=== PATIENT | female | born 1950 | race Caucasian/White ===

== ENCOUNTER 2017-12-08 11:08 | Day surgery (SDC) | payer MEDICARE ==
[2017-12-08] MEDS ORDERED: MIDAZOLAM 2 MG/2 ML SOL ONE (11:31)
[2017-12-08] MEDS: PHENYLEPHRINE HCL 10% OPHTHAL SOL ONE ×3 (12:01→12:08)
[2017-12-08] MEDS: TROPICAMIDE 1% OPHTH SOL ONE ×3 (12:01→12:08)
[2017-12-08] MEDS: CYCLOPENTOLATE 1% SOL ONE ×3 (12:01→12:08)
[2017-12-08] MEDS ORDERED: KETOROLAC/HOME 0.5% SOL OP ONE ×3 (12:02→12:09)
[2017-12-08] MEDS ORDERED: MOXIFLOXACIN-HOME SOL OP ONE ×2 (12:02→12:05)
[2017-12-08] MEDS: PROPARACAINE HCL 0.5% OPHTHALMIC SOL ONE ×2 (12:09→13:09)
[2017-12-08] MEDS ORDERED: BSS W/ 0.5 MG P.F. EPI 1 BOTTLE ONE (13:03)
[2017-12-08] MEDS ORDERED: LIDOCAINE HCL 2% MPF 10 ML SOL ONE (13:03)
[2017-12-08] MEDS ORDERED: POVIDONE IODINE 5% SOL ONE (13:03)
[2017-12-08 13:54] VITALS: BP 178/76; PULSE 74; RESP 20; TEMP 97.7; O2SAT 98
[2017-12-08] MEDS: ACETAZOLAMIDE 250 MG PO ONE ×2 (13:55→13:57)
== END 2017-12-08 14:10 | disposition home or self-care (01) | DRG 125 ==
LOC: SURG 11:08
PROVIDERS: ATTEND Ophthalmology
DX: H25.89 Other age-related cataract (principal)
CPT/HCPCS: J2250; A9270-GY

== ENCOUNTER 2018-01-05 11:27 | Day surgery (SDC) | payer MEDICARE ==
[2018-01-05] MEDS: MOXIFLOXACIN-HOME SOL LEFTEYE ONE ×2 (11:44→11:47)
[2018-01-05] MEDS: TROPICAMIDE 1% OPHTH SOL ONE ×3 (11:44→11:50)
[2018-01-05] MEDS: PHENYLEPHRINE HCL 10% OPHTHAL SOL ONE ×3 (11:44→11:51)
[2018-01-05] MEDS: KETOROLAC/HOME 0.5% SOL LEFTEYE ONE ×3 (11:44→11:50)
[2018-01-05] MEDS: CYCLOPENTOLATE 1% SOL ONE ×3 (11:44→11:50)
[2018-01-05] MEDS: PROPARACAINE HCL 0.5% OPHTHALMIC SOL ONE ×2 (11:51→12:36)
[2018-01-05] MEDS ORDERED: MIDAZOLAM 2 MG/2 ML SOL ONE (12:19)
[2018-01-05] MEDS ORDERED: LIDOCAINE HCL 2% MPF 10 ML SOL ONE (12:31)
[2018-01-05] MEDS ORDERED: POVIDONE IODINE 5% SOL ONE (12:32)
[2018-01-05] MEDS ORDERED: BSS W/ 0.5 MG P.F. EPI 1 BOTTLE ONE (12:32)
[2018-01-05] MEDS ORDERED: ACETAZOLAMIDE 250 MG PO ONE (12:37)
[2018-01-05 13:05] VITALS: BP 184/76; PULSE 78; RESP 18; TEMP 97.6; O2SAT 94
== END 2018-01-05 13:17 | disposition home or self-care (01) | DRG 125 ==
LOC: SURG 11:27
PROVIDERS: ATTEND Ophthalmology
DX: H25.89 Other age-related cataract (principal)
CPT/HCPCS: J2250; A9270-GY